=== PATIENT | male | born 1970 | race Caucasian/White ===

== ENCOUNTER 2020-09-04 05:37 | Inpatient (IN) | payer OTHER ==
[2020-09-04 06:22] LABS: BASO % 1.1 % (0-2.0); HEMATOCRIT 49.2 % (35.4-49); HEMOGLOBIN 16.8 GM/dL (11.7-16.9); LYMPH % 42.4 % (8-40); MCH 30.8 pg (25.7-33.7); MCHC 34.2 g/dl (32.0-35.9); MEAN CELL VOLUME 89.8 fl (80-96); MEAN PLT VOLUME 8.8 fl (7.5-11.1); MONO % 10.2 % (3.8-10.2); NEUT % 43.3 % (42.8-82.8); PLATELET COUNT 110 K/MM3 (134-434); RBC 5.47 M/mm3 (4.00-5.60); RDW 12.9 % (11.9-15.9)
[2020-09-04 06:51] LABS: CHLORIDE 102 mmol/L (98-107); SODIUM 136 mmol/L (136-145)
[2020-09-04 06:53] LABS: ALBUMIN 4.3 g/dl (3.4-5.0); ANION GAP 4 MMOL/L (8-16); BLOOD UREA NITROGEN 15.1 mg/dL (7-18); CO2 29 mmol/L (21-32); GLUCOSE,RANDOM 91 mg/dL (74-106)
[2020-09-04 06:56] LABS: CREATININE 1.3 mg/dL (0.55-1.3); SGOT/AST 40 U/L (15-37); SGPT/ALT 44 U/L (13-61)
[2020-09-04 06:58] LABS: BILIRUBIN,TOTAL 1.1 mg/dL (0.2-1); TOT PROT 8.1 g/dl (6.4-8.2)
[2020-09-04 06:59] LABS: ALK PHOS 68 U/L (45-117)
[2020-09-04 09:24] LABS: PLATELET ESTIMATE DECREASED
[2020-09-04 11:52] LABS: LDH 253 U/L (87-246)
[2020-09-04] MEDS ORDERED: MONTELUKAST NA 10 MG TABLET ONE (21:50)
[2020-09-04] MEDS: MONTELUKAST NA 10 MG TABLET PO SCH (21:59)
[2020-09-04 22:53] VITALS: BMI 34.6
[2020-09-05 09:08] LABS: BASO % 0.9 % (0-2.0); EOS % 3.4 % (0-4.5); HEMATOCRIT 45.8 % (35.4-49); HEMOGLOBIN 15.5 GM/dL (11.7-16.9); LYMPH % 42.1 % (8-40); MCH 30.2 pg (25.7-33.7); MCHC 33.9 g/dl (32.0-35.9); MEAN PLT VOLUME 8.5 fl (7.5-11.1); MONO % 10.5 % (3.8-10.2); NEUT % 43.1 % (42.8-82.8); PLATELET COUNT 167 K/MM3 (134-434); RBC 5.14 M/mm3 (4.00-5.60); RDW 13.2 % (11.9-15.9); WHITE BLOOD COUNT 4.8 K/mm3 (4.0-10.0)
[2020-09-05 09:28] LABS: URIC ACID 7.1 mg/dL (2.6-7.2)
[2020-09-05 09:31] LABS: ALBUMIN 3.8 g/dl (3.4-5.0); BLOOD UREA NITROGEN 15.8 mg/dL (7-18)
[2020-09-05 09:32] LABS: MAGNESIUM 2.4 mg/dL (1.8-2.4)
[2020-09-05 09:34] LABS: PHOSPHOROUS 3.3 mg/dL (2.5-4.9)
[2020-09-05 09:36] LABS: BILIRUBIN,TOTAL 1.1 mg/dL (0.2-1); TOT PROT 7.1 g/dl (6.4-8.2)
[2020-09-05] MEDS ORDERED: FLU VACCINE (FLULAVAL) PF 60 MCG/0.5 ML SYRINGE 2020-2021 IM ONE (10:00)
[2020-09-05] MEDS ORDERED: PNEUMOC 13-VAL CONJ-DIP CRM/PF 0.5 ML DISP.SYRIN IM ONE (10:00)
[2020-09-05] MEDS ORDERED: BUDESONIDE/FORMETEROL FUMARATE 160/4.5 mcg INHALER IH SCH (10:00)
[2020-09-05] MEDS ORDERED: PT OWN MED DRAWER 7, Y5N ONE ×2 (10:03→10:30)
[2020-09-05] MEDS: LOSARTAN POTASSIUM 25 MG TABLET PO SCH (10:14)
[2020-09-05] MEDS: EMTRICITABINE/TENOFOV ALAFENAM (DESCOVY) TABLET PO SCH (12:15)
[2020-09-05] MEDS: DARUNAVIR 800 MG/COBICISTAT 150MG TABLET PO SCH (12:16)
[2020-09-05] MEDS: BUDESONIDE/FORMETEROL FUMARATE 160/4.5 mcg INHALER IH SCH ×2 (17:55→21:02)
[2020-09-05] MEDS: MONTELUKAST NA 10 MG TABLET PO SCH (21:01)
[2020-09-06] MEDS ORDERED: SODIUM CHLORIDE 1,000 ML IV SCH (00:01)
[2020-09-06] MEDS ORDERED: PT OWN MED DRAWER 7, Y5N ONE (09:32)
[2020-09-06] MEDS: LOSARTAN POTASSIUM 25 MG TABLET PO SCH (09:46)
[2020-09-06] MEDS: DARUNAVIR 800 MG/COBICISTAT 150MG TABLET PO SCH (09:47)
[2020-09-06] MEDS: EMTRICITABINE/TENOFOV ALAFENAM (DESCOVY) TABLET PO SCH (09:47)
[2020-09-06] MEDS: BUDESONIDE/FORMETEROL FUMARATE 160/4.5 mcg INHALER IH SCH ×2 (09:48→21:48)
[2020-09-06 10:11] LABS: HEMATOCRIT 46.8 % (35.4-49); HEMOGLOBIN 15.8 GM/dL (11.7-16.9); MCH 30.2 pg (25.7-33.7); MCHC 33.8 g/dl (32.0-35.9); MEAN CELL VOLUME 89.2 fl (80-96); MEAN PLT VOLUME 8.3 fl (7.5-11.1); PLATELET COUNT 179 K/MM3 (134-434); RBC 5.24 M/mm3 (4.00-5.60); RDW 12.8 % (11.9-15.9)
[2020-09-06 10:19] LABS: INR 1.13 (0.83-1.09); PROTHROMBIN TIME (PATIENT) 13.8 SEC (9.7-13.0)
[2020-09-06 10:22] LABS: ACTIVATED PTT 28.1 SECONDS (25.2-36.5)
[2020-09-06 10:33] LABS: ALBUMIN 3.8 g/dl (3.4-5.0); BLOOD UREA NITROGEN 12.2 mg/dL (7-18)
[2020-09-06 10:34] LABS: MAGNESIUM 2.6 mg/dL (1.8-2.4)
[2020-09-06 10:36] LABS: CREATININE 1.1 mg/dL (0.55-1.3); PHOSPHOROUS 3.4 mg/dL (2.5-4.9)
[2020-09-06 10:38] LABS: BILIRUBIN,TOTAL 0.8 mg/dL (0.2-1); TOT PROT 7.2 g/dl (6.4-8.2)
[2020-09-06] MEDS ORDERED: LORazepam 2 MG/ML SDV VIAL IVPUSH ONE (15:50)
[2020-09-06] MEDS: MONTELUKAST NA 10 MG TABLET PO SCH (21:48)
[2020-09-07] MEDS ORDERED: PT OWN MED DRAWER 7, Y5N ONE (09:56)
[2020-09-07] MEDS: BUDESONIDE/FORMETEROL FUMARATE 160/4.5 mcg INHALER IH SCH (10:06)
[2020-09-07] MEDS: LOSARTAN POTASSIUM 25 MG TABLET PO SCH (10:07)
[2020-09-07] MEDS: DARUNAVIR 800 MG/COBICISTAT 150MG TABLET PO SCH (10:07)
[2020-09-07 11:34] VITALS: BP 140/98; PULSE 97; TEMP 98.2
[2020-09-07] MEDS: EMTRICITABINE/TENOFOV ALAFENAM (DESCOVY) TABLET PO SCH (12:51)
== END 2020-09-07 15:23 | disposition home or self-care (01) | DRG 694 ==
LOC: JER 05:37 → JERBED 12:33 → J5S 22:25
PROVIDERS: ADMIT Internal Medicine; ATTEND Internal Medicine
PROC: 0WBC3ZX Excision of Mediastinum, Percutaneous Approach, Diagnostic (ICD-10-PCS; principal; 2020-09-06)
DX: D49.89 Neoplasm of unspecified behavior of other specified sites (principal); J98.59 Other diseases of mediastinum, not elsewhere classified; R61 Generalized hyperhidrosis; Z21 Asymptomatic human immunodeficiency virus [HIV] infection status; J42 Unspecified chronic bronchitis; R50.9 Fever, unspecified; I10 Essential (primary) hypertension; R59.1 Generalized enlarged lymph nodes
CPT/HCPCS: 36415; 38505; 71045-TC-FY; 71260-TC; 74177-TC; 80053; 82105; 82550; 82553; 83615; 83735; 84100; 84439; 84443; 84484; 84550; 84702; 85025; 85027; 85610; 85651; 85730; 86850; 86900; 86901; 90670; 93005; 93010; 99285-25; C9803; G0008; G0009; Q2036; Q9967; U0003

== ENCOUNTER 2021-05-26 10:08 | Emergency (ER) | payer OTHER ==
[2021-05-26 10:16] VITALS: TEMP 98.5; BMI 33.9
[2021-05-26 10:49] LABS: HEMATOCRIT 49.5 % (35.4-49); MCH 30.1 pg (25.7-33.7); MCHC 34.3 g/dl (32.0-35.9); MEAN CELL VOLUME 87.8 fl (80-96); MEAN PLT VOLUME 8.2 fl (7.5-11.1); PLATELET COUNT 177 10^3/uL (134-434); RBC 5.63 M/mm3 (4.00-5.60); RDW 13.4 % (11.9-15.9); WHITE BLOOD COUNT 4.5 K/mm3 (4.0-10.0)
[2021-05-26 10:59] LABS: INR 1.08 (0.83-1.09); PROTHROMBIN TIME (PATIENT) 12.7 SEC (9.7-13.0)
[2021-05-26 11:23] LABS: CHLORIDE 106 mmol/L (98-107); SODIUM 140 mmol/L (136-145)
[2021-05-26 11:25] LABS: CALCIUM 8.9 mg/dL (8.5-10.1)
[2021-05-26 11:26] LABS: ANION GAP 8 MMOL/L (8-16); BLOOD UREA NITROGEN 12.5 mg/dL (7-18); CO2 26 mmol/L (21-32); GLUCOSE,RANDOM 102 mg/dL (74-106); MAGNESIUM 2.4 mg/dL (1.8-2.4)
[2021-05-26 11:29] LABS: CREATININE 1.2 mg/dL (0.55-1.3); SGOT/AST 47 U/L (15-37); SGPT/ALT 69 U/L (13-61)
[2021-05-26 11:30] LABS: TOT PROT 7.5 g/dl (6.4-8.2)
[2021-05-26 11:31] LABS: BILIRUBIN,TOTAL 1.3 mg/dL (0.2-1)
[2021-05-26 11:32] LABS: ALK PHOS 63 U/L (45-117)
[2021-05-26 11:49] LABS: EPI CELLS 0 /uL (0-25.1); HYALINE CASTS 0 /uL (0-3.1); URINE APPEARANCE CLEAR; URINE BACTERIA 1 /uL (0-1359); URINE BILIRUBIN NEGATIVE (NEGATIVE); URINE COLOR YELLOW; URINE GLUCOSE (UA) NEGATIVE (NEGATIVE); URINE KETONE NEGATIVE (NEGATIVE); URINE LEUK ESTERASE NEGATIVE (NEGATIVE); URINE NITRITE NEGATIVE (NEGATIVE); URINE PROTEIN NEGATIVE (NEGATIVE); URINE RBC 16 /uL (0-23.9); URINE UROBILINOGEN 0.2 mg/dL (0.2-1.0); URINE WBC 1 /uL (0-25.8)
[2021-05-26 15:49] VITALS: BP 158/98; PULSE 80
== END 2021-05-26 15:07 | disposition home or self-care (01) ==
LOC: JER 10:08
DX: R42 Dizziness and giddiness (principal); R61 Generalized hyperhidrosis
CPT/HCPCS: 36415; 71046-TC-FY; 74177-TC; 80053; 81003; 82550; 82553; 82962; 83735; 84484; 85027; 85610; 87086; 93005; 93010; 99285-25; Q9967

== ENCOUNTER 2022-07-21 21:04 | Emergency (ER) | payer OTHER ==
[2022-07-21 21:17] VITALS: RESP 20; BMI 37.3
[2022-07-21] MEDS ORDERED: SODIUM CHLORIDE 0.9% 500 ML INFUS.BAG IV ONE (21:40)
[2022-07-21] MEDS ORDERED: KETOROLAC TROMETHAMINE 15 MG/ML VIAL IVPUSH ONE (21:40)
[2022-07-21] MEDS ORDERED: KETOROLAC TROMETHAMINE 15 MG/ML VIAL ONE (21:56)
[2022-07-21] MEDS ORDERED: METHOCARBAMOL 500 MG TABLET PO ONE (22:19)
[2022-07-21 22:29] LABS: BASO % 0.9 % (0-2.0); EOS % 3.5 % (0-4.5); HEMATOCRIT 48.1 % (35.4-49); HEMOGLOBIN 16.4 GM/dL (11.7-16.9); MCH 30.3 pg (25.7-33.7); MCHC 34.1 g/dl (32.0-35.9); MEAN CELL VOLUME 88.7 fl (80-96); MEAN PLT VOLUME 8.4 fl (7.5-11.1); MONO % 9.8 % (3.8-10.2); NEUT % 47.8 % (42.8-82.8); PLATELET COUNT 203 10^3/uL (134-434); RBC 5.42 M/mm3 (4.00-5.60); RDW 14.2 % (11.9-15.9); WHITE BLOOD COUNT 6.4 K/mm3 (4.0-10.0)
[2022-07-21 22:30] LABS: INR 1.06 (0.83-1.09); PROTHROMBIN TIME (PATIENT) 12.2 SEC (9.7-13.0)
[2022-07-21 22:33] LABS: ACTIVATED PTT 30.4 SECONDS (25.2-36.5)
[2022-07-21] MEDS ORDERED: METHOCARBAMOL 500 MG TABLET ONE (22:40)
[2022-07-21 22:42] LABS: ALBUMIN 4.3 g/dl (3.4-5.0); BLOOD UREA NITROGEN 14.6 mg/dL (7-18); CALCIUM 9.3 mg/dL (8.5-10.1)
[2022-07-21 22:45] LABS: CREATININE 1.4 mg/dL (0.55-1.3)
[2022-07-21 22:47] LABS: BILIRUBIN,TOTAL 1.1 mg/dL (0.2-1); TOT PROT 7.5 g/dl (6.4-8.2)
[2022-07-22] MEDS ORDERED: LACTULOSE 20 GM/30 ML UDC (FOR ORAL USE ONLY) PO ONE (00:01)
[2022-07-22] MEDS ORDERED: POLYETHYLENE GLYCOL (HEALTHYLAX) 3350 17 GM PACKET PO SCH (00:15)
[2022-07-22] MEDS ORDERED: POLYETHYLENE GLYCOL (HEALTHYLAX) 3350 17 GM PACKET ONE (01:42)
[2022-07-22] MEDS ORDERED: LACTULOSE 20 GM/30 ML UDC (FOR ORAL USE ONLY) ONE (01:42)
[2022-07-22 01:47] VITALS: BP 122/63; PULSE 70; TEMP 98.2
== END 2022-07-22 02:01 | disposition home or self-care (01) ==
LOC: JER 21:04
PROC: 3E0333Z Introduction of Anti-inflammatory into Peripheral Vein, Percutaneous Approach (ICD-10-PCS; principal; 2022-07-21)
DX: M54.50 Low back pain, unspecified (principal)
CPT/HCPCS: 36415; 71260-TC; 72125-TC; 72128-TC; 72131-TC; 80053; 85025; 85610; 85730; 86850; 86900; 86901; 93005; 93010; 99285-25; C9803-CS; Q9967; U0003; U0005

== ENCOUNTER 2023-01-25 11:59 | Emergency (ER) | payer OTHER ==
[2023-01-25 12:04] VITALS: BP 146/90; PULSE 84; RESP 18; TEMP 97; BMI 37.3
[2023-01-25] MEDS ORDERED: KETOROLAC TROMETHAMINE 30 MG/1 ML VIAL IM ONE (14:34)
[2023-01-25] MEDS ORDERED: KETOROLAC TROMETHAMINE 30 MG/1 ML VIAL ONE (14:47)
[2023-01-25 14:57] LABS: INR 1.06 (0.83-1.09); PROTHROMBIN TIME (PATIENT) 12.3 SEC (9.7-13.0)
[2023-01-25 15:09] LABS: POTASSIUM 3.9 mmol/L (3.5-5.1)
[2023-01-25 15:11] LABS: ALBUMIN 4.2 g/dl (3.4-5.0); BLOOD UREA NITROGEN 16.1 mg/dL (7-18); CALCIUM 9.3 mg/dL (8.5-10.1)
[2023-01-25 15:14] LABS: CREATININE 1.2 mg/dL (0.55-1.3)
[2023-01-25 15:16] LABS: BILIRUBIN,TOTAL 1.5 mg/dL (0.2-1); TOT PROT 7.4 g/dl (6.4-8.2)
== END 2023-01-25 17:54 | disposition home or self-care (01) ==
LOC: JER 11:59
PROC: 3E0233Z Introduction of Anti-inflammatory into Muscle, Percutaneous Approach (ICD-10-PCS; principal; 2023-01-25)
DX: M54.40 Lumbago with sciatica, unspecified side (principal)
CPT/HCPCS: 36415; 71260-TC; 74177-TC; 80053; 85610; 86850; 86900; 86901; 99285-25; Q9967

== ENCOUNTER 2023-11-04 11:17 | Emergency (ER) | payer OTHER ==
[2023-11-04 11:22] VITALS: RESP 20; TEMP 98.3; BMI 37.3
[2023-11-04 13:18] LABS: EOS % 3.7 % (0-4.5); HEMATOCRIT 48.3 % (35.4-49); HEMOGLOBIN 16.6 GM/dL (11.7-16.9); LYMPH % 44.2 % (8-40); MCH 29.4 pg (25.7-33.7); MCHC 34.4 g/dl (32.0-35.9); MEAN CELL VOLUME 85.4 fl (80-96); MEAN PLT VOLUME 8.1 fl (7.5-11.1); MONO % 9.1 % (3.8-10.2); PLATELET COUNT 210 10^3/uL (134-434); RBC 5.66 M/mm3 (4.00-5.60); RDW 13.7 % (11.9-15.9)
[2023-11-04 13:35] LABS: CALCIUM 9.8 mg/dL (8.5-10.1)
[2023-11-04 13:36] LABS: ALBUMIN 4.4 g/dl (3.4-5.0); BLOOD UREA NITROGEN 11.7 mg/dL (7-18); MAGNESIUM 2.4 mg/dL (1.8-2.4)
[2023-11-04 13:39] LABS: CREATININE 1.1 mg/dL (0.55-1.3)
[2023-11-04 13:40] LABS: TOT PROT 8.1 g/dl (6.4-8.2)
[2023-11-04 13:41] LABS: BILIRUBIN,TOTAL 0.9 mg/dL (0.2-1)
[2023-11-04 15:28] VITALS: BP 148/76; PULSE 70
== END 2023-11-04 16:23 | disposition home or self-care (01) ==
LOC: JER 11:17
DX: R07.89 Other chest pain (principal); R42 Dizziness and giddiness
CPT/HCPCS: 36415; 71275-TC; 80053; 83735; 84484; 85025; 93005; 93010; 99285-25; Q9967